=== PATIENT | female | born 1985 | race Caucasian/White ===

== ENCOUNTER 2019-05-17 19:12 | Emergency (ER) | payer OTHER ==
[~2019-05-17] VITALS: Ht 165.1 cm; Wt 63.0 kg
[2019-05-17 19:31] VITALS: Ht 165.1 cm; Wt 63.0 kg
[2019-05-17 20:14] VITALS: BP 105/70
== END 2019-05-17 20:14 | disposition home or self-care (01) ==
LOC: ED 19:12
DX: S29.012A Strain of muscle and tendon of back wall of thorax, initial encounter (principal); Z98.890 Other specified postprocedural states; X50.9XXA Other and unspecified overexertion or strenuous movements or postures, initial encounter; Y93.89 Activity, other specified; Y92.89 Other specified places as the place of occurrence of the external cause; Y99.8 Other external cause status
CPT/HCPCS: J1885